=== PATIENT | male | born 1930 | race Caucasian/White ===

== ENCOUNTER 2018-05-23 04:12 | Emergency (ER) | payer OTHER ==
--- NOTE | 2018-05-23 04:15 | EDPHY ---
H & P Time Seen by Provider: 05/23/18 04:15 HPI/ROS: HPI CHIEF COMPLAINT: Left wrist skin tear HISTORY OF PRESENT ILLNESS: Patient 87-year-old male, he states he slipped and fell on wet water in the bathroom. He went to grab the side of the door wanes sustain 2 skin tears rather deep to the left wrist. Palmar side. He has a small hematoma as well. Denies head strike. Denies neck pain or headache, denies shortness of breath or chest pain. Denies feeling lightheaded. Past Medical History: BPH, osteoporosis, memory care at [facility]. Past Surgical History: Denies recent surgery Social History: Denies drugs alcohol tobacco Family History: Noncontributory ROS REVIEW OF SYSTEMS: A comprehensive 10 point review of systems is otherwise negative aside from elements mentioned in the history of present illness. Exam Constitutional triage nursing summary reviewed, vital signs reviewed, awake/ alert. Eyes normal conjunctivae and sclera, EOMI, PERRLA. HENT normal inspection, atraumatic, moist mucus membranes, no epistaxis, neck supple/ no meningismus, no raccoon eyes. Respiratory clear to auscultation bilaterally, normal breath sounds, no respiratory distress, no wheezing. Cardiovascular rate normal, regular rhythm, no murmur, no edema, distal pulses normal. Gastrointestinal soft, non-tender, no rebound, no guarding, normal bowel sounds, no distension, no pulsatile mass. Genitourinary no CVA tenderness. Musculoskeletal no midline vertebral tenderness, full range of motion, no calf swelling, no tenderness of extremities, no meningismus, good pulses, neurovascularly intact. Skin left wrist: Palmar side, there are 2 horizontally oriented deep skin tears. They will require sutures. No evidence of tendon injury. No arterial injury. Distally his hand is neurovascular intact. Neurologic awake, alert and oriented x 3, AAOx3, moves all 4 extremities equally, motor intact, sensory intact, CN II-XII intact, normal cerebellar, normal vision, normal speech. Psychiatric normal mood/affect. Heme/Lymph/Immune no lymphadenopathy. Differential Diagnosis: Includes but is not limited to in a particular order skin tear, need for tetanus shot, need for wound care, laceration, wrist fracture Medical Decision Making: Plan for this patient will update his tetanus shot, x- ray left wrist rule out fracture, and then his deep skin tears will need to be repaired. Re-evaluation: X-ray of the left wrist reveals no evidence of fracture foreign body. Laceration Repair Procedure: Verbal Consent was obtained, Under sterile conditions, The patient had lidocaine with epinephrine used approximately 5ccs to local anesthetize the left wrist 5CM Horizontal skin tear/ Laceration. The wound was copiously irrigated with sterile fluid, the wound was explored for foreign bodies there were none visualized, the wound was explored with a sterile glove to the base. There are no deep structures involved, including no arterial injury. 6 PROLENE 5.O interrupted Sutures were placed in this patient 's laceration. He had good close approximation of the wound edges. He Tolerated this well. Laceration Repair Procedure: Verbal Consent was obtained, Under sterile conditions, The patient had lidocaine with epinephrine used approximately 5ccs to local anesthetize the 3CM Horizontal Laceration. The wound was copiously irrigated with sterile fluid, the wound was explored for foreign bodies there were none visualized, the wound was explored with a sterile glove to the base. There are no deep structures involved, including no arterial injury. THREE 5.O PROLENE interrupted Sutures were placed in this patient's laceration. He had good close approximation of the wound edges. He Tolerated this well. Patient understands have sutures removed in 12-14 days. Keep the area clean, dry and protected. Watch for infection. Source: Patient, EMS Constitutional: Initial Vital Signs Temperature (C) 36.8 C 05/23/18 04:10 Heart Rate 54 L 05/23/18 04:10 Respiratory Rate 18 05/23/18 04:10 Blood Pressure 169/82 H 05/23/18 04:10 O2 Sat (%) 94 05/23/18 04:10 O2 Delivery Mode Room Air Allergies/Adverse Reactions: No Known Allergies Allergy (Unverified 05/23/18 04:18) Home Medications: Medication Instructions Recorded Fosamax 70 MG (*) 05/23/18 Tamsulosin HCl [Flomax] 0.4 mg PO 05/23/18 Vitamin B-12 05/23/18 Vitamin D3 05/23/18 Departure - Departure Disposition: Home, Routine, Self-Care Clinical Impression: Laceration Condition: Good Instructions: Care For Your Stitches (ED), Laceration (ED) Additional Instructions: 1. Your sutures need to be removed in 12-14 days. 2. Watch for signs of infection this includes redness, swelling, pain. 3. Return emergency room or your primary care doctor's office to have the sutures removed. Referrals: Patient,NotPresent [Primary Care Provider] - As per Instructions
[2018-05-23] MEDS ORDERED: TDAP ADULT 0.5 ML INJ (BOOSTRIX) IM ONE (04:25)
[2018-05-23 04:55] VITALS: BP 159/71
== END 2018-05-23 05:44 | disposition home or self-care (01) ==
LOC: EDUNIT# → EDBD
PROC: 0HQGXZZ Repair Left Hand Skin, External Approach (ICD-10-PCS; principal; 2018-05-23)
DX: S61.512A Laceration without foreign body of left wrist, initial encounter (principal); Z23 Encounter for immunization; W01.0XXA Fall on same level from slipping, tripping and stumbling without subsequent striking against object, initial encounter; Y92.002 Bathroom of unspecified non-institutional (private) residence as the place of occurrence of the external cause

== ENCOUNTER 2018-12-03 21:35 | Inpatient (IN) | payer OTHER ==
--- NOTE | 2018-12-03 21:50 | EDPHY ---
H & P Stated Complaint: From [facility] c/o SOB, RA sat 86%. Afib en route Time Seen by Provider: 12/03/18 21:50 HPI/ROS: HPI CHIEF COMPLAINT: Shortness of breath HISTORY OF PRESENT ILLNESS: 88-year-old male from [facility], has dementia, presents emergency room shortness of breath. Staff called [phone] for transport to the hospital for shortness of breath. Sounds like he was having dyspnea on exertion walking down the busch. Labored breathing. Patient arrives to the emergency room in no acute distress but did have a room air saturation of 86%. He does not wear oxygen. The patient very pleasantly demented. He has no complaints at this time. He does endorse a cough. He denies chest pain. Past Medical History: Significant medical history BPH, memory care at [facility]. Past Surgical History: No recent surgery Social History: Resides at [facility]. Family History: Noncontributory ROS REVIEW OF SYSTEMS: 10 Systems were reviewed and negative with the exception of the elements mentioned in the history of present illness. Exam Constitutional nontoxic, triage nursing summary reviewed, vital signs reviewed , awake/alert. Vital signs noted at triage tachycardic, hypoxic 86%, tachycardic in the 120s. Eyes normal conjunctivae and sclera, EOMI, PERRLA. HENT normal inspection, atraumatic, moist mucus membranes, no epistaxis, neck supple/ no meningismus, no raccoon eyes. Respiratory clear to auscultation bilaterally, normal breath sounds, no respiratory distress, no wheezing. Cardiovascular tachycardic, regular rhythm, no murmur, no edema, distal pulses normal. Gastrointestinal soft, non-tender, no rebound, no guarding, normal bowel sounds, no distension, no pulsatile mass. Genitourinary no CVA tenderness. Musculoskeletal no midline vertebral tenderness, full range of motion, no calf swelling, no tenderness of extremities, no meningismus, good pulses, neurovascularly intact. Skin pink, warm, & dry, no rash, skin atraumatic. Neurologic Ax Ox1, moves all 4 extremities equally, motor intact, sensory intact, CN II-XII intact, normal cerebellar, normal vision, normal speech. Psychiatric normal mood/affect. Heme/Lymph/Immune no lymphadenopathy. Differential Diagnosis: Differential diagnosis includes but is not limited to: ACS, atypical chest pain, pneumothorax, pneumonia, pulmonary embolism, aortic dissection, congestive heart failure, tumor, musculoskeletal pain, esophageal pain, GERD, peptic ulcer disease, pancreatitis Medical Decision Making: Plan for this patient IV establishment with chest x- ray EKG troponin, blood culture lactic acid, supplemental oxygen, evaluate for shortness of breath. Re-evaluation: EKG interpretation by me on record in [facility] system. Impression time of EKG 2142, sinus tach 124 Q-waves inferior leads to 3 AVF PVC present. Q-waves V1 V2 V3. No ST elevation. No old EKG to compare this to. Given this patient's tachycardia and hypoxia will proceed with CT angiogram of the chest. Troponin is noted to be negative. D-dimer negative. The elevated lactic acid. Given elevated lactic acid, hypoxic, tachycardia will proceed with CT angiogram of the chest. Chest x-ray reviewed. CT angiogram of the chest shows bilateral pulmonary emboli main right pulmonary emboli and subsegmental PE. As well as left-sided PE. Significant clot burden. Plan for this patient heparin drip The patient is a [facility] patient I did speak with [facility] at 11:35 p.m. They are fine me keeping the patient here given his tachycardia, large PE volume. Plan will be for admission to the hospital service. Heparin drip. Updated patient. Patient has advanced dementia. Will additionally try to make contact with the family. 2342: Vika the daughter discussed the case in detail. She is agreeable for blood thinners and admission to the hospital[place] come to the hospital tonight I did discuss the grave situation the patient is in with significant clot burden. She understands the patient is at risk for poor outcome. She will plan on coming to the hospital tomorrow. This been discussed in detail with her. Daughter is fine with Heparin Gtt. 2351: Plan for admission. Dr. Childress Accepts. 2351: Daughter agrees for admission. Patient updated (Dementia), agrees for admission. Lactic acid was elevated 4.1. This is not due to sepsis is due to pulmonary emboli. Critical Care: Total Critical Care Time Spent Managing this Patient: 85 Minutes. This time was spent Exclusively with this patient. This Care was exclusive of procedures. The Organ System/life at risk was cardiac, pulmonary This Patient was in Critical Condition because sub-massive pe, with Heart Strain, Hypoxia, tachycardia. Source: Patient - Personal History Current Tetanus Diphtheria and Acellular Pertussis (TDAP): Unsure - Medical/Surgical History Hx Asthma: No Hx Chronic Respiratory Disease: No Hx Diabetes: No Hx Cardiac Disease: No Hx Renal Disease: No Hx Cirrhosis: No Hx Alcoholism: No Hx HIV/AIDS: No Hx Splenectomy or Spleen Trauma: No Other PMH: hx dementia, BPH, osteoprosis, insomnia, bone pain, glaucoma, anemia , dysphagia, htn, live at [facility]. - Social History Smoking Status: Never smoked Constitutional: Initial Vital Signs Temperature (C) 36.3 C 12/03/18 21:41 Heart Rate 127 H 12/03/18 21:41 Respiratory Rate 26 H 12/03/18 21:41 Blood Pressure 141/104 H 12/03/18 21:41 O2 Sat (%) 87 L 12/03/18 21:41 O2 Delivery Mode Nasal Cannula O2 (L/minute) 3 Allergies/Adverse Reactions: No Known Allergies Allergy (Verified 12/04/18 14:57) Home Medications: Medication Instructions Recorded Alendronate Sodium [Fosamax 70 MG 70 mg PO MO@0700 05/23/18 (*)] Cholecalciferol Vit D3 [Vitamin D3 2,000 units PO DAILY18 05/23/18 (*)] Cyanocobalamin [Vitamin B12 (*)] 1,000 mcg PO DAILY18 05/23/18 Acetaminophen [Tylenol 325mg (*)] 650 mg PO Q4HRS PRN 12/04/18 Tamsulosin HCl [Flomax 0.4 MG (*)] 0.4 mg PO HS 12/04/18 Warfarin Sodium [Coumadin 5MG (*)] 5 mg PO DAILY@1600 tab 12/09/18 Medical Decision Making - Data Points Laboratory Results: Laboratory Results 12/03/18 21:52 12/03/18 21:52 Microbiology Results: MICROBIOLOGY 12/03/18 22:18 Blood Blood Culture - Final 12/03/18 22:50 Blood Blood Culture - Final Medications Given: Acetaminophen (Tylenol) 650 mg PO Q4HRS PRN PRN Reason: Pain, Mild/Fever, Can Take PO Stop: 06/01/19 23:50 Last Admin: 12/04/18 12:16 Dose: 650 mg Cholecalciferol (Vitamin D) 2,000 units PO DAILY18 [facility] Stop: 06/03/19 17:59 Last Admin: 12/08/18 17:52 Dose: 2,000 units Tamsulosin HCl (Flomax) 0.4 mg PO HS [facility] Stop: 06/03/19 20:59 Last Admin: 12/08/18 20:03 Dose: 0.4 mg Vitamin B Complex (Vitamin B12) 1,000 mcg PO DAILY18 [facility] Stop: 06/03/19 17:59 Last Admin: 12/08/18 17:52 Dose: 1,000 mcg Warfarin Sodium (Message-Coumadin Daily Order) 1 ea MISC DAILY@1500 [facility] Stop: 06/03/19 14:59 Last Admin: 12/08/18 17:53 Dose: Not Given Warfarin Sodium (Coumadin) 5 mg PO DAILY@1600 [facility] Stop: 06/05/19 15:59 Last Admin: 12/08/18 17:53 Dose: 5 mg Discontinued Medications Furosemide (Lasix) 20 mg PO ONCE ONE Stop: 12/05/18 14:33 Last Admin: 12/05/18 16:01 Dose: 20 mg Furosemide (Lasix) 20 mg PO ONCE ONE Stop: 12/06/18 15:41 Last Admin: 12/06/18 17:57 Dose: 20 mg Heparin Sodium (Porcine) (Heparin Injection) 0 unit IVP EDNOW ONE Stop: 12/03/18 23:30 Last Admin: 12/03/18 23:44 Dose: 5,700 unit Sodium Chloride (Ns) 1,000 mls @ 0 mls/hr IV EDNOW ONE; Wide Open PRN Reason: Protocol Stop: 12/03/18 21:53 Last Admin: 12/03/18 21:57 Dose: 1,000 mls Heparin Sodium (Porcine) (Heparin 50 Units/Ml (Premix)) 500 mls @ 0 mls/hr IV EDNOW ONE; Per Protocol PRN Reason: Protocol Stop: 12/03/18 23:30 Last Admin: 12/03/18 23:46 Dose: 500 mls Heparin Sodium (Porcine) (Heparin 50 Units/Ml (Premix)) 500 mls @ 0 mls/hr IV CONT ISABELLE; Per Protocol PRN Reason: Protocol Stop: 06/01/19 23:44 Last Admin: 12/08/18 20:04 Dose: 500 mls Potassium Chloride (Klor-Con) 20 meq PO ONCE ONE Stop: 12/06/18 16:31 Last Admin: 12/06/18 17:57 Dose: 20 meq Warfarin Sodium (Coumadin) 5 mg PO ONCE@1600 ONE Stop: 12/05/18 16:01 Last Admin: 12/05/18 16:01 Dose: 5 mg Warfarin Sodium (Coumadin) 5 mg PO ONCE@1600 ONE Stop: 12/06/18 16:01 Last Admin: 12/06/18 17:57 Dose: 5 mg Point of Care Test Results: Chemistry 12/03/18 21:50 POC Troponin I 0.05 ng/mL ng/mL (0.00-0.08) Departure - Departure Disposition: [facility] Inpatient Acute Clinical Impression: Pulmonary emboli Qualifiers: Pulmonary embolism type: unspecified Chronicity: acute Acute cor pulmonale presence: with acute cor pulmonale Qualified Code(s): I26.09 - Other pulmonary embolism with acute cor pulmonale Dementia Qualifiers: Dementia type: unspecified type Dementia behavioral disturbance: without behavioral disturbance Qualified Code(s): F03.90 - Unspecified dementia without behavioral disturbance Condition: Fair
[2018-12-03] MEDS ORDERED: NS 1,000 ML IV ONE (21:52)
[2018-12-03 22:02] LABS: PLATELET COUNT 191 10^3/uL (150-400)
--- NOTE | 2018-12-03 22:29 | CPEKG ---
Test Reason : OPEN Blood Pressure : / mmHG Vent. Rate : 124 BPM Atrial Rate : 168 BPM P-R Int : 119 ms QRS Dur : 093 ms QT Int : 302 ms P-R-T Axes : 000 -43 058 degrees QTc Int : 434 ms Sinus tachycardia Multiform ventricular premature complexes Inferior infarct, old Consider anterior infarct Confirmed by Melissa Verdin ([id number]) on 12/03/2018 10:29:19 PM Referred By: PHYSICIAN ED Confirmed By:Melissa Verdin
[2018-12-03 22:46] LABS: INR 1.05 (0.83-1.16); PROTIME(PATIENT) 13.9 SEC (12.0-15.0)
[2018-12-03] MEDS ORDERED: IOPAMIDOL (ISOVUE 370) 75 ML BTL IV ONE (22:59)
[2018-12-03] MEDS ORDERED: HEPARIN 10,000 UNIT/10 ML MDV (1,000 UNIT/ML) IVP ONE (23:29)
[2018-12-03] MEDS ORDERED: HEPARIN/DEXTROSE 500 ML IV ONE (23:29)
[2018-12-03] MEDS ORDERED: ONDANSETRON 4 MG/2 ML VIAL IVP PRN (23:51)
[2018-12-03] MEDS ORDERED: ONDANSETRON DISINTEGRATING 4 MG TAB PO PRN (23:51)
[2018-12-03] MEDS ORDERED: ACETAMINOPHEN 325 MG TAB PO PRN (23:51)
[2018-12-03] MEDS ORDERED: HEPARIN 10,000 UNIT/10 ML MDV (1,000 UNIT/ML) IVP PRN (23:53)
--- NOTE | 2018-12-04 00:15 | PDGENHP ---
History and Physical - Chief Complaint Shortness of Breath - History of Present Illness 88 yo M w hx of dementia presents with shortness of breath. The patient lives at [facility] and was brought in for evaluation of shortness of breath. The patient provides a limited history due to dementia. He is pleasant but A&Ox1 on my evaluation. He denies complaints currently but does recall feeling short of breath earlier. He tells me he has no medical problems, though I doubt this. He is a [facility] patient so we have limited data on his medical history. In the ED his evaluation was notable for extensive PE. He denies personal hx of blood clots, although this is limited by his memory issues. He is tachycardic but hemodynamically stable. He is being admitted for management as he was felt to be too unstable for transfer to [facility]. Case discussed with ED physician Dr. Hedrick; records reviewed and summarized above. History Information - Allergies/Home Medication List Allergies/Adverse Reactions: No Known Allergies Allergy (Unverified 05/23/18 04:18) Home Medications: Fosamax 70 MG (*) 05/23/18 [Last Taken Unknown] Tamsulosin HCl [Flomax] 0.4 mg PO 05/23/18 [Last Taken Unknown] Vitamin B-12 05/23/18 [Last Taken Unknown] Vitamin D3 05/23/18 [Last Taken Unknown] I have personally reviewed and updated: family history, medical history - Past Medical History dementia, osteoporosis - Surgical History Additional surgical history: Patient denies - Family History Additional family history: Thinks his mom may have had blood clots - Social History Smoking Status: Never smoked Review of Systems Review of Systems: ROS: 10pt was reviewed & negative except for what was stated in HPI & below Physical Exam Physical Exam: Temp Pulse Resp BP Pulse Ox 36.3 C 98 24 H 160/92 H 94 12/03/18 21:41 12/04/18 00:04 12/04/18 00:04 12/04/18 00:04 12/04/18 00:04 O2 (L/minute) 3 Constitutional: no apparent distress, not in pain Eyes: PERRL, EOMI Ears, Nose, Mouth, Throat: moist mucous membranes, no oral mucosal ulcers Cardiovascular: regular rate and rhythym, systolic murmur Respiratory: no respiratory distress, inspiratory crackles Gastrointestinal: normoactive bowel sounds, soft, non-tender abdomen Skin: warm, normal color Musculoskeletal: full muscle strength, no muscle tenderness Neurologic: CN II-XII Intact, other (A&Ox1) Psychiatric: interacting appropriately, not anxious Lab Data & Imaging Review 12/03/18 21:52 12/03/18 21:52 WBC 13.55 10^3/uL (3.80-9.50) H 12/03/18 21:52 RBC 4.76 10^6/uL (4.40-6.38) 12/03/18 21:52 Hgb 15.4 g/dL (13.7-17.5) 12/03/18 21:52 Hct 47.4 % (40.0-51.0) 12/03/18 21:52 MCV 99.6 fL (81.5-99.8) 12/03/18 21:52 MCH 32.4 pg (27.9-34.1) 12/03/18 21:52 MCHC 32.5 g/dL (32.4-36.7) 12/03/18 21:52 RDW 12.8 % (11.5-15.2) 12/03/18 21:52 Plt Count 191 10^3/uL (150-400) 12/03/18 21:52 MPV 11.0 fL (8.7-11.7) 12/03/18 21:52 Neut % (Auto) 51.7 % (39.3-74.2) 12/03/18 21:52 Lymph % (Auto) 36.5 % (15.0-45.0) 12/03/18 21:52 [place] % (Auto) 9.4 % (4.5-13.0) 12/03/18 21:52 Eos % (Auto) 1.4 % (0.6-7.6) 12/03/18 21:52 Baso % (Auto) 0.4 % (0.3-1.7) 12/03/18 21:52 Nucleat RBC Rel Count 0.0 % (0.0-0.2) 12/03/18 21:52 Absolute Neuts (auto) 6.99 10^3/uL (1.70-6.50) H 12/03/18 21:52 Absolute Lymphs (auto) 4.95 10^3/uL (1.00-3.00) H 12/03/18 21:52 Absolute Monos (auto) 1.28 10^3/uL (0.30-0.80) H 12/03/18 21:52 Absolute Eos (auto) 0.19 10^3/uL (0.03-0.40) 12/03/18 21:52 Absolute Basos (auto) 0.06 10^3/uL (0.02-0.10) 12/03/18 21:52 Absolute Nucleated RBC 0.00 10^3/uL (0-0.01) 12/03/18 21:52 Immature Gran % 0.6 % (0.0-1.1) 12/03/18 21:52 Immature Gran # 0.08 10^3/uL (0.00-0.10) 12/03/18 21:52 PT 13.9 SEC (12.0-15.0) 12/03/18 21:52 INR 1.05 (0.83-1.16) 12/03/18 21:52 APTT 29.5 SEC (23.0-38.0) 12/03/18 21:52 D-Dimer < 0.27 ug/mLFEU (0.00-0.50) 12/03/18 21:52 VBG Lactic Acid 4.2 mmol/L (0.7-2.1) H 12/03/18 22:18 Sodium 140 mEq/L (135-145) 12/03/18 21:52 Potassium 4.8 mEq/L (3.5-5.2) 12/03/18 21:52 Chloride 104 mEq/L (97-110) 12/03/18 21:52 Carbon Dioxide 20 mEq/l (22-31) L 12/03/18 21:52 Anion Gap 16 mEq/L (6-14) H 12/03/18 21:52 BUN 16 mg/dL (7-23) 12/03/18 21:52 Creatinine 1.1 mg/dL (0.7-1.3) 12/03/18 21:52 Estimated GFR > 60 12/03/18 21:52 Glucose 128 mg/dL (70-100) H 12/03/18 21:52 Calcium 9.7 mg/dL (8.5-10.4) 12/03/18 21:52 Magnesium 2.2 mg/dL (1.6-2.3) 12/03/18 21:52 Total Bilirubin 0.6 mg/dL (0.1-1.4) 12/03/18 21:52 Conjugated Bilirubin 0.2 mg/dL (0.0-0.5) 12/03/18 21:52 Unconjugated Bilirubin 0.4 mg/dL (0.0-1.1) 12/03/18 21:52 AST 21 IU/L (17-59) 12/03/18 21:52 ALT 21 IU/L (21-72) 12/03/18 21:52 Alkaline Phosphatase 75 IU/L (38-126) 12/03/18 21:52 POC Troponin I 0.05 ng/mL (0.00-0.08) 12/03/18 21:50 NT-Pro-B Natriuret Pep 1040 pg/mL (0-450) H 12/03/18 21:52 Total Protein 8.0 g/dL (6.3-8.2) 12/03/18 21:52 Albumin 4.6 g/dL (3.5-5.0) 12/03/18 21:52 Imaging Review: Imaging Impressions Chest X-Ray 12/03/18 21:52 Impression: 1. Heart size at the upper limits of normal. 2. Query airways disease. 3. Basilar atelectasis. Chest/Thorax CTA 12/03/18 22:57 Impression: 1. Extensive pulmonary embolic disease more pronounced on the right side. 2. See above report for additional findings. Results called and discussed with Jacob Reynolds MD on 12/03/2018 at 23:34. Visualized and Interpreted EKG results: Yes EKG Interpretation: Positive for: normal sinsus rhythm, other (Sinus tach) Assessment & Plan Assessment: 88 yo M w/ hx of dementia presents with submassive PE. Plan: 1. Submassive PE - Presents w/ SOB; CTA (personally reviewed/interpreted) demonstrates extensive pulmonary embolic disease R>L. He is tachycardic but hemodynamically stable at the moment. Troponin negative but BNP elevated suggestive of mild R heart strain. The patient denies prior hx of VTE but this is limited by significant dementia. - Admit to step down for close monitoring - Monitor on telemetry, trend cardiac enzymes - Heparin gtt - Echocardiogram ordered for cardiac evaluation 2. Lactic acidosis - Likely related to extensive blood clots. - Treat acutely as above - Repeat with morning labs after IVF 3. AHRF - Related to pulmonary emboli, currently requiring 3 L/min O2 via NC to maintain O2 sats >89%. - Continue O2 PRN - Incentive spirometry ordered 4. Dementia - Pleasant but A&Ox1 on my evaluation; his baseline is unclear to me as we have limited data on him as he is a [facility] patient. - Bed alarm - Minimize centrally acting medications Diet - Regular Code - DNR Ppx - Heparin gtt Dispo - Admit under inpatient status
[2018-12-04 01:04] LABS: INR 1.56 (0.83-1.16); PROTIME(PATIENT) 18.8 SEC (12.0-15.0)
[2018-12-04 06:53] LABS: PLATELET COUNT 162 10^3/uL (150-400)
--- NOTE | 2018-12-04 11:13 | PDMN ---
Medical Necessity Medical necessity: MCG: M290 Pulm. embolism A-4 days; pt presents with SOB, lives at [facility], Found to have extensive pul. embolic disease more pronounced on the R , Pt have elevated trop overnight to 0.463 , req 3L O2 to keeps sats> 89% hx dementia. anticipate > 2 MN ongoing med nec care, further monitoring, eval and tx of above
--- NOTE | 2018-12-04 11:22 | ECHO ---
[email or web address] [address] [address] Main: [phone] Fax: Transthoracic Echocardiogram Name: JULISA PEREZ MR#: [id number] Study Date: 12/04/2018 Study Time: 07:33 AM Date of : 1930 Age: 88 year(s) Height: 167.6 cm (66 in.) Weight: 71.21 kg (157 lb.) BSA: 1.8 m2 Gender: Male Examination: Echo Indication: PE Image Quality: Fair Contrast: Requested by: Jaciel Navarrete BP: 108 mmHg/ Heart Rate: Rhythm: Indication: PE Procedure Staff Residential Driver: Madisyn Atwood RDCS Reading Physician: Darryl Talavera MD Requesting Provider: Conclusions: The left ventricle cavity is small. Global hypercontractility of the left ventricle. The ejection fraction is estimated to be 70-75 %. No regional wall motion abnormality. Severely dilated right ventricle. Severely reduced RV function. There is a moderator band noted in the right ventricle. Mild mitral annular calcification. Mild mitral valve regurgitation is present. The aortic valve is tri-leaflet. Mild to moderate aortic valve regurgitation. Moderate tricuspid regurgitation is present. RVSP is 38mmHG.. Measurements: Chambers Valvular Assessment AV/MV Valvular Assessment TV/PV Normal Normal Normal Name Value Range Name Value Range Name Value Range Ao Eufemia (MM): 3.6 cm (2.2 cm-3.7 AV Vmax: 1.27 m/s (1 m/s-1.7 TR Vmax: 2.65 mm/s ( - ) cm) m/s) TR PGmax: 28 mmHg ( - ) IVSd (2D): 0.8 cm (0.6 cm-1.1 AV meanP mmHg ( - ) syst. PAP: 38 mmHg ( - ) cm) AR (PHT): 674 ms ( - ) LVDd (2D): 4.1 cm (4.2 cm-5.9 MV E Vmax: 0.54 m/s ( - ) cm) MV A Vmax: 0.24 m/s ( - ) LVDs (2D): 2.6 cm (2.1 cm-4 MV E/A: 2.25 ( - ) cm) LVPWd (2D): 0.9 cm (0.6 cm-1 cm) LVEF (2D): 67 (>=54 %) EF Range: 70-75 % Patient: JULISA PEREZ Study Date: 12/04/2018 Page 1 of 2 07:33 AM Continued Measurements: Chambers Valvular Assessment AV/MV Valvular Assessment TV/PV Name Value Name Value Name Value LADs: 3.5 cm MV E' Septal: 0.07 m/s CVP (est.): 10 mmHg LADs Lon.1 cm MV E/E' Septal: 7.30 LA Area: 15.9 cm2 MV E/E' Lateral: 8.60 LA Volume: 40 ml AR Vmax: 3.98 cm/s LA Volume Index: 22.2 ml/m2 Additional Vessels Name Value Ao Ascendin.6 cm Findings: Left Ventricle: The left ventricle cavity is small. No LV hypertrophy. Global hypercontractility of the left ventricle. The ejection fraction is estimated to be 70-75 %. No regional wall motion abnormality. Normal diastolic LV function. Right Ventricle: Severely dilated right ventricle. Severely reduced RV function. There is a moderator band noted in the right ventricle. Cannot R/O RV apical thrombus.. Left Atrium: The left atrium is normal in size. Right Atrium: The right atrium is moderately dilated. Mitral Valve: Mild mitral annular calcification. Mild mitral valve regurgitation is present. Aortic Valve: The aortic valve is normal in appearance and function. The aortic valve is tri-leaflet. Mild to moderate aortic valve regurgitation. Tricuspid Valve: The tricuspid valve is normal in appearance and function. Moderate tricuspid regurgitation is present. RVSP is 38mmHG.. Pulmonic Valve: The pulmonic valve is normal in appearance and function. Mild pulmonic valve regurgitation is noted. Aorta: The aorta is normal. Pericardium: No pericardial effusion. (No Signature Object) Patient: JULISA PEREZ Study Date: 12/04/2018 Page 2 of 2 07:33 AM [id number]
--- NOTE | 2018-12-04 13:15 | HOSPPROG ---
Hospitalist Progress Note Assessment/Plan: 88 yo M w/ hx of dementia presents with submassive PE. # Submassive PE - Presents w/ SOB; CTA (personally reviewed/interpreted) demonstrates extensive pulmonary embolic disease R>L. He was tachycardic on admission but hemodynamically stable at the moment. Troponin negative but BNP elevated suggestive of mild R heart strain. The patient denies prior hx of VTE but this is limited by significant dementia. -Initially admitted to the SDU, no longer tachycardic. Does not c/o of SOB. Will transfer to PCU -Cont Heparin. -Echocardiogram reviewed. Report does show the possibility of RV thrombus. This was discussed with Dr. Dennis Talavera. After further review he feels that this is unlikely. There is also severely dilated RV with severely depressed RV function. The RV impairment is felt to not be acute. He is hemodynamically stable with no e/o of volume overload. Cont AC. No additional acute interventions needed at this time. Repeat trop is pending #Severely Dilated RV with decreased function -[place] to be chronic per above -Etiology is unclear -For now cont with AC, unclear what w/u has been done through the [employer] system. Will obtain formal cards consult if pts develops volume overload or becomes unstable #LLE DVT # Lactic acidosis - Likely related to extensive blood clots. Resolved #AHRF - Related to pulmonary emboli, currently requiring 3 L/min O2 via NC to maintain O2 sats >89%. - Continue O2 PRN - Incentive spirometry ordered #. Dementia - Pleasant but A&Ox1 on my evaluation; his baseline is unclear to me as we have limited data on him as he is a [place] patient. - Bed alarm - Minimize centrally acting medications #Leukocytosis -negative PC -Etiology non infectious #Generalized Weakness, chronic, uses a walker at baseline -will obtain a PT evaluation -cont AC. He has fallen recently and uses a walker. For prison AC, he will likely need to be changed to Warfarin. Diet - Regular Code - DNR Ppx - Heparin gtt Dispo - Ok to transfer to PCU. If decompensates, will need Cards consult. May also consider palliative care Subjective: no cp or sob. no n/v. no dysuria. Objective: Vital Signs Temp Pulse Resp BP Pulse Ox 36.6 C 61 18 117/58 L 96 12/04/18 08:00 12/04/18 12:00 12/04/18 12:00 12/04/18 12:00 12/04/18 12:00 Laboratory Results 12/04/18 06:20 12/04/18 06:20 12/03/18 12/04/18 12/05/18 05:59 05:59 05:59 Intake Total 1186 Balance 1186 PT 18.8 SEC (12.0-15.0) H 12/04/18 00:01 INR 1.56 (0.83-1.16) H 12/04/18 00:01 - Time Spent With Patient Time Spent with Patient: greater than 35 minutes Time Spent with Patient: Greater than 35 minutes spent on this patients care, greater than 50% of time spent counseling, educating, and coordinating care regarding the above mentioned plan. - Physical Exam Constitutional: chronically ill appearing Eyes: PERRL, EOMI Ears, Nose, Mouth, Throat: moist mucous membranes, hearing normal Cardiovascular: regular rate and rhythym, No edema Respiratory: no respiratory distress, no rales or rhonchi, clear to auscultation Gastrointestinal: normoactive bowel sounds Skin: warm Neurologic: No AAOx3 Psychiatric: interacting appropriately, not anxious, encephalopathic Lymph, Heme, Immunologic: No petechiae ICD10 Worksheet Patient Problems: Problems Problem Status Onset Dementia Acute Pulmonary emboli Acute
--- NOTE | 2018-12-04 14:11 | ASMTCASEMG ---
Living Arrangements What is your living Answers: With Other (Not Family) arrangement? Who do you live with? Type Of Residence What kind of residence do Answers: Senior [facility] you live in? Type of Residence Facility Name Notes: Patient lives at [facility] Discharge Plan Comments Coordination Status Comments Notes: Patient is a 88yo male with a hx of dementia who presents with submassive PE. Patient has been admitted for submassive PE, lactic acidosis, AHRF, dementia. Patient is [employer] insurance. PT/OT have been ordered. D/C plan TBD. CM will follow. Date Signed: 12/04/2018 02:10 PM Electronically Signed By:Jessica Gonzalez LCSW
[2018-12-05] MEDS ORDERED: FUROSEMIDE 20 MG TAB PO ONE (14:32)
--- NOTE | 2018-12-05 14:45 | HOSPPROG ---
Hospitalist Progress Note Assessment/Plan: 88 yo M w/ hx of dementia presents with submassive PE. # Submassive PE - Presents w/ SOB; CTA (personally reviewed/interpreted) demonstrates extensive pulmonary embolic disease R>L. He was tachycardic on admission but hemodynamically stable at the moment. Troponin negative but BNP elevated suggestive of mild R heart strain. The patient denies prior hx of VTE but this is limited by significant dementia. -Initially admitted to the SDU, now in PCU -Cont Heparin, start Coumadin today. -Echocardiogram reviewed. Report does show the possibility of RV thrombus. This was discussed with Dr. Dennis Talavera. After further review he feels that this is unlikely. There is also severely dilated RV with severely depressed RV function. The RV impairment is felt to not be acute. He is hemodynamically stable. Cont AC. No additional acute interventions needed at this time. -trop trending down #Severely Dilated RV with decreased function -[place] to be chronic per above -Etiology is unclear -AC per above -one dose of Lasix 20mg PO #LLE DVT involving the left femoral vein, report does not indicate occlusive -AC per above # Lactic acidosis - Likely related to extensive blood clots. Resolved #AHRF - Related to pulmonary emboli, currently requiring 3-4 L/min O2 via NC to maintain O2 sats >89%. - Continue O2 PRN - Incentive spirometry ordered #. Dementia - Pleasant but A&Ox1 on my evaluation; his baseline is unclear to me as we have limited data on him as he is a [place] patient. - Bed alarm - Minimize centrally acting medications #Leukocytosis -negative PC -Etiology non infectious #Generalized Weakness, chronic, uses a walker at baseline -will obtain a PT evaluation -cont AC. He has fallen recently and uses a walker. -For snf AC, we will do Coumadin which will start today Diet - Regular Code - DNR Ppx - Heparin gtt/coumadin Dispo - Ok to transfer to PCU. If decompensates, will need Cards consult. May also consider palliative care CXR review, mild pulm congestion (my read) Subjective: still with some SOB. on 4 L O2. no cp. Objective: Vital Signs Temp Pulse Resp BP Pulse Ox 36.5 C 77 18 104/59 L 78 L 12/05/18 11:31 12/05/18 11:31 12/05/18 11:31 12/05/18 11:31 12/05/18 12:06 Laboratory Results 12/04/18 06:20 12/04/18 06:20 12/04/18 12/05/18 12/06/18 05:59 05:59 05:59 Intake Total 1186 434 660 Output Total 300 Balance 1186 134 660 PT 18.8 SEC (12.0-15.0) H 12/04/18 00:01 INR 1.56 (0.83-1.16) H 12/04/18 00:01 - Physical Exam Constitutional: no apparent distress, chronically ill appearing Eyes: EOMI Ears, Nose, Mouth, Throat: moist mucous membranes, hearing normal Cardiovascular: regular rate and rhythym, No edema Respiratory: no respiratory distress, reduced air movement Gastrointestinal: normoactive bowel sounds Skin: warm Musculoskeletal: generalized weakness Neurologic: No AAOx3 Psychiatric: interacting appropriately Lymph, Heme, Immunologic: No petechiae ICD10 Worksheet Patient Problems: Problems Problem Status Onset Dementia Acute Pulmonary emboli Acute
[2018-12-05] MEDS ORDERED: WARFARIN SODIUM 5 MG TAB PO ONE (16:00)
--- NOTE | 2018-12-05 16:30 | ASMTCMCOM ---
CM Note CM Note Notes: Met with patient and his daughter, Angela. PT is recommending SNF rehab for the patient at discharge. He is a resident of [facility] and they have SNF rehab so a referral was sent to them. Angela will contact [facility] for the pre approval needed for rehab care. Spoke with Leila at [facility] and she states they cannot do a weekend admission but they will have a bed for the patient on Sunday. D/C plan is for patient to go to [facility] rehab program when he is medically clear. CM will follow. Date Signed: 12/05/2018 04:29 PM Electronically Signed By:Jessica Gonzalez LCSW
[2018-12-05] MEDS: CHOLECALCIFEROL VIT D3 1,000 UNITS TAB PO SCH (17:44)
[2018-12-05] MEDS: HEPARIN/DEXTROSE 500 ML IV SCH (17:44)
[2018-12-05] MEDS: CYANO/VITAMIN B12 1000 MCG TAB PO SCH (17:44)
--- NOTE | 2018-12-05 17:44 | CPEKG ---
Test Reason : OPEN Blood Pressure : / mmHG Vent. Rate : 075 BPM Atrial Rate : 074 BPM P-R Int : 318 ms QRS Dur : 092 ms QT Int : 470 ms P-R-T Axes : 220 -31 -15 degrees QTc Int : 525 ms Sinus or ectopic atrial rhythm Prolonged FL interval Inferior infarct, old Probable anterior infarct, age indeterminate Prolonged QT interval Compared with 12/03/2018 HR slower. QT longer Confirmed by Margot Corbin ([id number]) on 12/05/2018 5:44:14 PM Referred By: Jaciel Childress Confirmed By:Margot Corbin
[2018-12-05] MEDS: TAMSULOSIN HCL 0.4 MG CAP PO SCH (21:15)
[2018-12-06 04:01] LABS: PLATELET COUNT 193 10^3/uL (150-400)
[2018-12-06 04:10] LABS: INR 1.18 (0.83-1.16); PROTIME(PATIENT) 15.2 SEC (12.0-15.0)
--- NOTE | 2018-12-06 13:02 | ASMTCMCOM ---
CM Note CM Note Notes: PASRR was completed and Allscripted to [facility] as well as faxed to OB. Patient has been accepted with [facility] and they will have a bed for him on Sunday. They cannot do a weekend admit due to having a nurse out this weekend. PASRR did not trigger and is filed in patient's medical chart. Spoke with Angela, patient's daughter to let her know patient has an approved bed with [facility] and she can give [facility] a call to do the pre auth. Angela had questions regarding transport. Let her know we usually arrange transport for safety but she may want to talk to [facility] about what they cover. Anticipate patient will be medically clear for discharge on Sunday and will go to [facility] for rehab. CM will follow. Date Signed: 12/06/2018 01:01 PM Electronically Signed By:Jessica Gonzalez LCSW
[2018-12-06] MEDS ORDERED: FUROSEMIDE 20 MG TAB PO ONE (15:40)
--- NOTE | 2018-12-06 15:44 | HOSPPROG ---
Hospitalist Progress Note Assessment/Plan: 88 yo M w/ hx of dementia presents with submassive PE. # Submassive PE - Presents w/ SOB; CTA (personally reviewed/interpreted) demonstrates extensive pulmonary embolic disease R>L. He was tachycardic on admission but hemodynamically stable at the moment. Troponin negative but BNP elevated suggestive of mild R heart strain. The patient denies prior hx of VTE but this is limited by significant dementia. -Initially admitted to the SDU, now in PCU -Cont Heparin bridge, Coumadin which was started 12/05. INR is not yet therapeutic. #volume overload -Echocardiogram reviewed. Report does show the possibility of RV thrombus. This was discussed with Dr. Dennis Talavera. After further review he feels that this is unlikely. There is also severely dilated RV with severely depressed RV function. The RV impairment is felt to not be acute. He is hemodynamically stable. Cont AC. No additional acute interventions needed at this time. -trop trending down -Give additional dose of Lasix today. Volume is better. Unclear if he will need ongoing diuretics. -will need f/u with [place] cardiology once discharged #Severely Dilated RV with decreased function -[place] to be chronic per above -Etiology is unclear -AC per above #LLE DVT involving the left femoral vein, report does not indicate occlusive -AC per above # Lactic acidosis - Likely related to extensive blood clots. Resolved #AHRF - Related to pulmonary emboli, currently requiring 3-4 L/min O2 via NC to maintain O2 sats >89%. - Continue O2 PRN - Incentive spirometry ordered - O2 needs are improving. Suspect that he needs some supplemental O2 at baseline #. Dementia - Pleasant but A&Ox1 on my evaluation; his baseline is unclear to me as we have limited data on him as he is a [place] patient. - Bed alarm - Minimize centrally acting medications #Leukocytosis -negative PC -Etiology non infectious -WBC is decreasing #Generalized Weakness, chronic, uses a walker at baseline -will obtain a PT evaluation -cont AC. He has fallen recently and uses a walker. -For intermodal dispatcher AC, we will do Coumadin which will start today Diet - Regular Code - DNR Ppx - Heparin gtt/coumadin Dispo - cont inpatient Subjective: no overnight events. no cp. less sob. afebrile. Objective: Vital Signs Temp Pulse Resp BP Pulse Ox 34.0 C L 71 18 136/70 H 95 12/06/18 15:32 12/06/18 15:32 12/06/18 15:32 12/06/18 15:32 12/06/18 15:32 Laboratory Results 12/06/18 03:50 12/06/18 03:50 12/05/18 12/06/18 12/07/18 05:59 05:59 05:59 Intake Total 434 1971 360 Output Total 300 Balance 134 1970 360 PT 15.2 SEC (12.0-15.0) H 12/06/18 03:50 INR 1.18 (0.83-1.16) H 12/06/18 03:50 - Physical Exam Constitutional: no apparent distress, chronically ill appearing Eyes: PERRL Ears, Nose, Mouth, Throat: moist mucous membranes, hearing normal Cardiovascular: regular rate and rhythym, edema (trace) Respiratory: no respiratory distress, reduced air movement Gastrointestinal: normoactive bowel sounds, soft, non-tender abdomen Skin: warm Musculoskeletal: generalized weakness Psychiatric: interacting appropriately, not anxious, encephalopathic Lymph, Heme, Immunologic: No petechiae ICD10 Worksheet Patient Problems: Problems Problem Status Onset Dementia Acute Pulmonary emboli Acute
[2018-12-06] MEDS ORDERED: WARFARIN SODIUM 5 MG TAB PO ONE (16:00)
[2018-12-06] MEDS ORDERED: POTASSIUM CL 20 MEQ TAB PO ONE (16:30)
[2018-12-06] MEDS: CHOLECALCIFEROL VIT D3 1,000 UNITS TAB PO SCH (17:56)
[2018-12-06] MEDS: CYANO/VITAMIN B12 1000 MCG TAB PO SCH (17:57)
[2018-12-06] MEDS: HEPARIN/DEXTROSE 500 ML IV SCH (19:08)
[2018-12-06] MEDS: TAMSULOSIN HCL 0.4 MG CAP PO SCH (19:49)
[2018-12-07 05:16] LABS: PLATELET COUNT 231 10^3/uL (150-400)
[2018-12-07 05:25] LABS: INR 1.36 (0.83-1.16); PROTIME(PATIENT) 16.9 SEC (12.0-15.0)
--- NOTE | 2018-12-07 11:57 | HOSPPROG ---
Hospitalist Progress Note Assessment/Plan: 88 yo M w/ hx of dementia presents with submassive PE. # Submassive PE - Presents w/ SOB; CTA (personally reviewed/interpreted) demonstrates extensive pulmonary embolic disease R>L. He was tachycardic on admission but hemodynamically stable at the moment. Troponin negative but BNP elevated suggestive of mild R heart strain. The patient denies prior hx of VTE but this is limited by significant dementia. -Initially admitted to the SDU, now in PCU -Cont Heparin bridge, Coumadin which was started 12/05. INR is not yet therapeutic (1.36 this AM) #volume overload -Echocardiogram reviewed. Report does show the possibility of RV thrombus. This was discussed with Dr. Dennis Talavera. After further review he feels that this is unlikely. There is also severely dilated RV with severely depressed RV function. The RV impairment is felt to not be acute. He is hemodynamically stable. Cont AC. No additional acute interventions needed at this time. -trop trending down -Given additional dose of Lasix on 12/06. Volume is better. Will hold on ongoing diuretics for today. -will need f/u with [place] cardiology once discharged #Severely Dilated RV with decreased function -[place] to be chronic per above -Etiology is unclear -AC per above #LLE DVT involving the left femoral vein, report does not indicate occlusive -AC per above # Lactic acidosis - Likely related to extensive blood clots. Resolved #AHRF - Related to pulmonary emboli, currently requiring 3-4 L/min O2 via NC to maintain O2 sats >89%. - Continue O2 PRN - Incentive spirometry ordered - O2 needs are improving. Suspect that he needs some supplemental O2 at baseline #. Dementia - Pleasant but A&Ox1 on my evaluation; his baseline is unclear to me as we have limited data on him as he is a [place] patient. - Bed alarm - Minimize centrally acting medications #Leukocytosis -negative PC -Etiology non infectious -WBC is decreasing #Generalized Weakness, chronic, uses a walker at baseline -will obtain a PT evaluation -cont AC. He has fallen recently and uses a walker. -For intermediate AC, we will do Coumadin which will start today Diet - Regular Code - DNR Ppx - Heparin gtt/coumadin Dispo - cont inpatient Subjective: Patient reports no issues this AM Objective: Vital Signs Temp Pulse Resp BP Pulse Ox 36.8 C 59 L 15 105/60 94 12/07/18 11:36 12/07/18 11:36 12/07/18 11:36 12/07/18 11:36 12/07/18 11:36 Laboratory Results 12/07/18 05:05 12/07/18 05:07 12/06/18 12/07/18 12/08/18 05:59 05:59 05:59 Intake Total 1970 1480 Balance 1970 1480 PT 16.9 SEC (12.0-15.0) H 12/07/18 05:07 INR 1.36 (0.83-1.16) H 12/07/18 05:07 - Physical Exam Constitutional: no apparent distress Eyes: PERRL Ears, Nose, Mouth, Throat: moist mucous membranes Cardiovascular: regular rate and rhythym Respiratory: no respiratory distress Gastrointestinal: soft, non-tender abdomen Musculoskeletal: generalized weakness Neurologic: No AAOx3 Psychiatric: interacting appropriately ICD10 Worksheet Patient Problems: Problems Problem Status Onset Dementia Acute Pulmonary emboli Acute
[2018-12-07] MEDS: WARFARIN SODIUM 5 MG TAB PO SCH (14:59)
[2018-12-07] MEDS: CHOLECALCIFEROL VIT D3 1,000 UNITS TAB PO SCH (17:47)
[2018-12-07] MEDS: CYANO/VITAMIN B12 1000 MCG TAB PO SCH (17:47)
[2018-12-07] MEDS: TAMSULOSIN HCL 0.4 MG CAP PO SCH (19:55)
[2018-12-07] MEDS: HEPARIN/DEXTROSE 500 ML IV SCH (19:57)
[2018-12-08 05:46] LABS: INR 1.82 (0.83-1.16); PROTIME(PATIENT) 21.2 SEC (12.0-15.0)
--- NOTE | 2018-12-08 15:03 | HOSPPROG ---
Hospitalist Progress Note Assessment/Plan: 88 yo M w/ hx of dementia presents with submassive PE. # Submassive PE - Presents w/ SOB; CTA (personally reviewed/interpreted) demonstrates extensive pulmonary embolic disease R>L. He was tachycardic on admission but hemodynamically stable at the moment. Troponin negative but BNP elevated suggestive of mild R heart strain. The patient denies prior hx of VTE but this is limited by significant dementia. -Initially admitted to the SDU, now in PCU -Cont Heparin bridge, Coumadin which was started 12/05. INR is not yet therapeutic (1.8 this AM) #volume overload -Echocardiogram reviewed. Report does show the possibility of RV thrombus. This was discussed with Dr. Dennis Talavera. After further review he feels that this is unlikely. There is also severely dilated RV with severely depressed RV function. The RV impairment is felt to not be acute. He is hemodynamically stable. Cont AC. No additional acute interventions needed at this time. -trop trending down -Given additional dose of Lasix on 12/06. Volume is better. Will hold on ongoing diuretics for today. -will need f/u with [place] cardiology once discharged #Severely Dilated RV with decreased function -[place] to be chronic per above -Etiology is unclear -AC per above #LLE DVT involving the left femoral vein, report does not indicate occlusive -AC per above # Lactic acidosis - Likely related to extensive blood clots. Resolved #AHRF - Related to pulmonary emboli, currently requiring 3-4 L/min O2 via NC to maintain O2 sats >89%. - Continue O2 PRN - Incentive spirometry ordered - on RA this afternoon #. Dementia - Pleasant but A&Ox1 on my evaluation; his baseline is unclear to me as we have limited data on him as he is a [place] patient. - Bed alarm - Minimize centrally acting medications #Leukocytosis -negative PC -Etiology non infectious -WBC is decreasing #Generalized Weakness, chronic, uses a walker at baseline - PT recommending SNF -cont AC. He has fallen recently and uses a walker. Diet - Regular Code - DNR Ppx - Heparin gtt/coumadin Dispo - cont inpatient, d/c tomorrow to SNF pending therapeutic INR Subjective: Patient reports no complaints this AM Objective: Vital Signs Temp Pulse Resp BP Pulse Ox 36.9 C 68 20 99/69 L 93 12/08/18 11:26 12/08/18 11:26 12/08/18 11:26 12/08/18 11:26 12/08/18 11:26 Laboratory Results 12/07/18 05:05 12/07/18 05:07 12/07/18 12/08/18 12/09/18 05:59 05:59 05:59 Intake Total 1480 1125 250 Balance 1480 1125 250 PT 21.2 SEC (12.0-15.0) H 12/08/18 05:15 INR 1.82 (0.83-1.16) H 12/08/18 05:15 - Physical Exam Constitutional: no apparent distress Eyes: PERRL Ears, Nose, Mouth, Throat: moist mucous membranes Cardiovascular: regular rate and rhythym Respiratory: no respiratory distress Skin: normal color Neurologic: AAOx3 Psychiatric: interacting appropriately ICD10 Worksheet Patient Problems: Problems Problem Status Onset Dementia Acute Pulmonary emboli Acute
[2018-12-08] MEDS: CHOLECALCIFEROL VIT D3 1,000 UNITS TAB PO SCH (17:52)
[2018-12-08] MEDS: CYANO/VITAMIN B12 1000 MCG TAB PO SCH (17:52)
[2018-12-08] MEDS: WARFARIN SODIUM 5 MG TAB PO SCH (17:53)
[2018-12-08] MEDS: TAMSULOSIN HCL 0.4 MG CAP PO SCH (20:03)
[2018-12-08] MEDS: HEPARIN/DEXTROSE 500 ML IV SCH (20:04)
[2018-12-09 06:15] LABS: INR 2.2 (0.83-1.16); PROTIME(PATIENT) 24.5 SEC (12.0-15.0)
[2018-12-09] MEDS ORDERED: ALENDRONATE SODIUM 70 MG TAB PO SCH (07:00)
--- NOTE | 2018-12-09 10:49 | PDHOMEO2F ---
Home Oxygen Face to Face Home Orders: I certify that a physician or a nurse practitioner or physician's child and youth program assistant has had a [id number] encounter with this patient on the date of this order due to the diagnosis listed, which relates to the primary reason the patient requires home oxygen. Alternative treatments have been tried, or considered, and deemed ineffective. It is anticipated that supplemental oxygen will result in improvement with treatment. Home oxygen qualifying diagnosis: Pulmonary Embolism SpO2 on room air (%): 87 Frequency of home oxygen needed: continuous Home oxygen liters per minute: 2 Home oxygen delivery device: nasal cannula Concentrator: Yes E-tanks for mobility and back up: Yes If ordering portable O2, is the patient mobile in the home?: Yes I certify that, based on these findings, the home oxygen is medically necessary for this patient for the following length of time. Length of time home oxygen needed: 99 years
--- NOTE | 2018-12-09 11:13 | PDIAF ---
- Diagnosis Diagnosis: Pulmonary Embolism Code Status: Do Not Resuscitate - Medication Management Discharge Medications: electronically signed and located in the Home Medication List. - Orders Services needed: Registered Nurse, Physical Therapy, Occupational Therapy - Labs/Radiology PT/INR Date: 12/11/18 (Goal INR 2-3, 2.2 on day of discharge 12/09) - Follow Up Care Current Providers and Referrals: Patient,NotPresent [Unknown] - As per Instructions
[2018-12-09 11:34] VITALS: BP 111/57
--- NOTE | 2018-12-09 12:54 | PDDCSUM ---
Discharge Summary Discharge Summary: Date of Admission: 12/03/2018 Date of Discharge: 12/09/2018 Consults: N/A Procedures: CTA Followup: PCP Hospital Course Problem List: 88 yo M w/ hx of dementia presents with submassive PE. # Submassive PE - Presents w/ SOB; CTA demonstrates extensive pulmonary embolic disease R>L. He was tachycardic on admission but hemodynamically stable at the moment. Troponin negative but BNP elevated suggestive of mild R heart strain. The patient denies prior hx of VTE but this is limited by significant dementia. -Initially admitted to the SDU, now in PCU -Bridged with Heparin gtt to Warfarin, INR is not yet therapeutic (1.8 this AM) #volume overload -Echocardiogram reviewed. Report does show the possibility of RV thrombus. This was discussed with Dr. Dennis Talavera. After further review he feels that this is unlikely. There is also severely dilated RV with severely depressed RV function. The RV impairment is felt to not be acute. He is hemodynamically stable. Cont AC. No additional acute interventions needed at this time. -trop trending down -Given additional dose of Lasix on 12/06. Volume is better. Will hold on ongoing diuretics for today. -will need f/u with [facility] once discharged #Severely Dilated RV with decreased function -[place] to be chronic per above -Etiology is unclear -AC per above #LLE DVT involving the left femoral vein, report does not indicate occlusive -AC per above # Lactic acidosis - Likely related to extensive blood clots. Resolved #AHRF - Related to pulmonary emboli, currently requiring 3-4 L/min O2 via NC to maintain O2 sats >89%. - Continue O2 PRN - Incentive spirometry ordered - on RA this afternoon #. Dementia - Pleasant but A&Ox1 on my evaluation; his baseline is unclear to me as we have limited data on him as he is a [facility] patient. - Bed alarm - Minimize centrally acting medications #Leukocytosis -negative PC -Etiology non infectious -WBC is decreasing #Generalized Weakness, chronic, uses a walker at baseline - PT recommending SNF -cont AC. He has fallen recently and uses a walker. Time spent on discharge >35 minutes with >50% of time spent on patient education and counseling.
--- NOTE | 2018-12-09 12:55 | ASMTDCNOTE ---
Case Management Discharge Discharge Order Complete? Answers: Yes [facility] Obtain [facility] Arranged Answers: Other Notes: [facility] @3:30pm Case Management Transport Answers: Yes Form Complete Faxed Final Orders Answers: Yes Agency/Facility Transfer Answers: Yes Report Printed & Faxed to Receiving Agency Family Notified Answers: Yes Discharge Comments Notes: CM spoke with pt and his daughter, Gerda ([phone]) to inform of discharge plans. CM submit referral to [facility] for SNF approval, they denied him and said he needed to go back to his AL at [facility]. CM discussed this with MD and RN and were in agreement that AL was a safe dispo. CM discussed this with pt's daughter and was agreeable with plan. 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 CM completed PCS form and provided to , notified FM and family about transport time. No other CM concerns noted. Date Signed: 12/09/2018 12:55 PM Electronically Signed By:JAYESH Lugo
--- NOTE | 2018-12-09 13:04 | ASDISCHSUM ---
Discharge Information Plan Status:Assisted Living Medically Cleared to Leave: Discharge Date: D/C Disposition:Assisted Living ADT D/C Disposition: Projected Discharge Date:12/07/2018 11:00 AM Transportation at D/C:ALS/BLS Discharge Delay Reason: Follow-Up Date:12/07/2018 11:00 AM Discharge Slot: Final Diagnosis: Placement Information Referral Type:*Custodial/SNF Referral ID:[id number] Provider Name:[facility] Address 1:[address] Address 2: City:[place] Selection Factors: State:[place] Referral Type:*Custodial/SNF Referral ID:[id number] Provider Name:[facility] Address 1:[address] Phone Number: Address 2: Fax Number: [facility]:[place] Selection Factors: State:[place] Patient Contact Information Contact Name:RUSLAN Relationship:Daughter Address:[facility] [address] City:[place] Alternate Phone: State/Zip Code:[place] [address] Email: Financial Information Financial Class:Medicare Advantage Plans Primary Plan Desc:[employer] ADV IP Primary Plan Number:[id number] Secondary Plan Desc: Secondary Plan Number: Assessment Information LACE LACE Length of stay for Answers: 4-6 days current admission Acuity / Level of Answers: Yes Care: Did the patient have an inpatient admission? Comorbidities - select Answers: Chronic pulmonary disease all that apply Dementia Opioid dependence / Chronic pain Other Notes: BPH # of Emergency department Answers: 1-2 visits in the last 6 months Score: 18 Date Signed: 12/09/2018 01:03 PM Electronically Signed By:JAYESH Lugo [facility] Initial CM Assessment Living Arrangements What is your living Answers: With Other (Not Family) arrangement? Who do you live with? Type Of Residence What kind of residence do Answers: Detention you live in? Type of Residence Facility Name Notes: Patient lives at [facility] Discharge Plan Comments Coordination Status Comments Notes: Patient is a 88yo male with a hx of dementia who presents with submassive PE. Patient has been admitted for submassive PE, lactic acidosis, AHRF, dementia. Patient is [employer] insurance. PT/OT have been ordered. D/C plan TBD. CM will follow. Date Signed: 12/04/2018 02:10 PM Electronically Signed By:Jessica Gonzalez LCSW [facility] CM Progress Note CM Note CM Note Notes: Met with patient and his daughter, Angela. PT is recommending SNF rehab for the patient at discharge. He is a resident of [facility] and they have SNF rehab so a referral was sent to them. Angela will contact [employer] for the pre approval needed for rehab care. Spoke with Leila at [facility] and she states they cannot do a weekend admission but they will have a bed for the patient on Sunday. D/C plan is for patient to go to [facility] rehab program when he is medically clear. CM will follow. Date Signed: 12/05/2018 04:29 PM Electronically Signed By:Jessica Gonzalez LCSW [facility] CM Progress Note CM Note CM Note Notes: PASRR was completed and Allscripted to [facility] as well as faxed to [facility]. Patient has been accepted with [facility] and they will have a bed for him on Sunday. They cannot do a weekend admit due to having a nurse out this weekend. PASRR did not trigger and is filed in patient's medical chart. Spoke with Angela, patient's daughter to let her know patient has an approved bed with [facility] and she can give [employer] a call to do the pre auth. Angela had questions regarding transport. Let her know we usually arrange transport for safety but she may want to talk to [employer] about what they cover. Anticipate patient will be medically clear for discharge on Sunday and will go to [facility] for rehab. CM will follow. Date Signed: 12/06/2018 01:01 PM Electronically Signed By:Jessica Gonzalez LCSW Case Management Discharge Plan Note Case Management Discharge Discharge Order Complete? Answers: Yes Patient to Obtain Answers: Other Notes: [facility] Medications Transportation Arranged Answers: Other Notes: [facility] @3:30pm Case Management Transport Answers: Yes Form Complete Faxed Final Orders Answers: Yes Agency/Facility Transfer Answers: Yes Report Printed & Faxed to Receiving Agency Family Notified Answers: Yes Discharge Comments Notes: MIO spoke with pt and his daughter, Gerda ([phone]) to inform of discharge plans. CM submit referral to [employer] for SNF approval, they denied him and said he needed to go back to his AL at [facility]. CM discussed this with MD and RN and were in agreement that AL was a safe dispo. CM discussed this with pt's daughter and was agreeable with plan. 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 CM completed PCS form and provided to , notified FM and family about transport time. No other CM concerns noted. Date Signed: 12/09/2018 12:55 PM Electronically Signed By:JAYESH Lugo Intervention Information
[2018-12-09] MEDS: WARFARIN SODIUM 5 MG TAB PO SCH (15:17)
== END 2018-12-09 15:23 | DRG 175 ==
LOC: EDUNIT# → F2N 12-04 00:16 → F2W 12-04 15:43
PROVIDERS: ADMIT Student in an Organized Health Care Education/Training Program; ATTEND Student in an Organized Health Care Education/Training Program
DX: I26.99 Other pulmonary embolism without acute cor pulmonale (principal); J96.01 Acute respiratory failure with hypoxia; I82.412 Acute embolism and thrombosis of left femoral vein; F03.90 Unspecified dementia, unspecified severity, without behavioral disturbance, psychotic disturbance, mood disturbance, and anxiety; E87.70 Fluid overload, unspecified; E87.2 Acidosis; Z66 Do not resuscitate
CPT/HCPCS: 84484-ER; 85520-90; 96374; 97116-GP; 97161-GP; 97165-GO; 97530-GP; 97535-GO; J1644; Q9967